=== PATIENT | male | born 1960 | race Two or more races ===

== ENCOUNTER 2022-06-04 06:15 | Day surgery (SDC) | payer OTHER | END 2022-06-04 10:05 | disposition home or self-care (01) | LOC: AMB-ENDOS 06:15 | PROVIDERS: ATTEND Colon & Rectal Surgery | DX: R19.5 Other fecal abnormalities (principal); K57.30 Diverticulosis of large intestine without perforation or abscess without bleeding; K64.8 Other hemorrhoids; Z20.822 Contact with and (suspected) exposure to COVID-19 ==